=== PATIENT | male | born 1955 | race Caucasian/White ===

== ENCOUNTER 2018-03-17 10:51 | Emergency (ER) | payer OTHER ==
[2018-03-17] MEDS ORDERED: Lactated Ringers 1,000 ML IV ONE (12:00)
--- NOTE | 2018-03-17 12:02 | EDM.PDOC ---
ED HPI GENERAL MEDICAL PROBLEM - General Chief Complaint: Syncope Stated Complaint: FELL OUT OF CHAIR Time Seen by Provider: 03/17/18 11:45 Source of Information: Reports: Patient, EMS, RN History Limitations: Reports: Other (no old records immediately available) - History of Present Illness INITIAL COMMENTS - FREE TEXT/NARRATIVE: 62 yo male here with his after a syncopal episode at a local restaurant. Had slight advanced warning of the syncope in that he got sweaty and mildly light-headed first. He passed out once in the past in association with dehydration/atrial fibrillation. He normally gets [facility] care at [facility] [place]. He denies any CP, diarrhea, vomiting, nausea, or bleeding. No seizure hx. Had almost finished lunch when he had this syncopal spell. Onset: Sudden Onset Date: 03/17/18 Duration: Minutes: (1-2), Resolved Prior to Arrival Location: Reports: Generalized - Related Data Allergies Allergy/AdvReac Type Severity Reaction Status Date / Time No Known Allergies Allergy Verified 03/17/18 11:15 Past Medical History HEENT History: Reports: Hard of Hearing, Other (See Below) Other HEENT History: bilateral hearing aid Cardiovascular History: Reports: Afib, Hypertension, SOB on Exertion Respiratory History: Reports: COPD Genitourinary History: Reports: Other (See Below) Other Genitourinary History: slow stream Musculoskeletal History: Reports: Neck Pain, Chronic Neurological History: Reports: Migraines, Vertigo, Other (See Below) Other Neuro History: syncopal episodes Dermatologic History: Reports: Other (See Below) Other Dermatologic History: 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 - Infectious Disease History Infectious Disease History: Reports: Chicken Pox, Influenza, Measles, Mumps, Shingles - Past Surgical History Cardiovascular Surgical History: Reports: Varicose, Vascular Surgery GI Surgical History: Reports: Appendectomy, Other (See Below) Other GI Surgeries/Procedures: pyloricstenosis, Neurological Surgical History: Reports: C-Spine Other Musculoskeletal Surgeries/Procedures:: c3-4 fusion and c4-7 fusion - cervical fracture lead to fusion c4-7 Dermatological Surgical History: Reports: Skin Biopsy Social & Family History - Family History Cardiac: Reports: Hypertension Endocrine/Metabolic: Reports: Diabetes, type II Oncologic: Reports: Prostate - Tobacco Use Smoking Status *Q: Former Smoker Used Tobacco, but Quit: Yes Month/Year Tobacco Last Used: october 2015 Tobacco Use Comment: quit october 2015 after 45 years Second Hand Smoke Exposure: No - Caffeine Use Caffeine Use: Reports: Coffee, Soda, Tea - Recreational Drug Use Recreational Drug Use: No ED ROS GENERAL - Review of Systems Review Of Systems: See Below Constitutional: Reports: No Symptoms HEENT: Reports: No Symptoms Respiratory: Reports: No Symptoms Cardiovascular: Reports: No Symptoms, Syncope GI/Abdominal: Reports: No Symptoms : Reports: No Symptoms Musculoskeletal: Reports: No Symptoms Skin: Reports: Wound (abrasions L cheek and L elbow) Neurological: Reports: Syncope. Denies: Confusion, Dizziness, Headache, Numbness, Trouble Speaking, Difficulty Walking, Weakness Psychiatric: Reports: No Symptoms - Physical Exam Exam: See Below Exam Limited By: No Limitations General Appearance: Alert, WD/WN, No Apparent Distress Eye Exam: Bilateral Eye: Normal Inspection, PERRL Ears: Normal External Exam, Normal Canal, Hearing Grossly Normal Nose: Normal Inspection, Normal Mucosa, No Blood Throat/Mouth: Normal Inspection, Normal Lips, Normal Oropharynx, Normal Voice, No Airway Compromise Head Exam: Atraumatic, Normocephalic Neck: Normal Inspection, Supple, Non-Tender Respiratory/Chest: No Respiratory Distress, Lungs Clear, Normal Breath Sounds, No Accessory Muscle Use Cardiovascular: Regular Rate, Rhythm, No Edema GI/Abdominal: Normal Bowel Sounds, Soft, Non-Tender Back Exam: Normal Inspection Extremities: Normal Inspection, Normal Range of Motion, Non-Tender, No Pedal Edema Psychiatric: Normal Affect, Normal Mood Skin Exam: Warm, Dry, Normal Color, No Rash, Wound/Incision (abrasions L cheek and L elbow) Course - Vital Signs Last Recorded V/S: Last Vital Signs Temp 36.8 C 03/17/18 11:21 Pulse 65 03/17/18 11:21 Resp 13 03/17/18 11:21 BP 117/61 03/17/18 11:21 Pulse Ox 95 03/17/18 11:21 Orthostatic Blood Pressure [ 119/66 Standing] Orthostatic Blood Pressure [ 115/63 Sitting] Orthostatic Blood Pressure [ 122/63 Supine] - Orders/Labs/Meds Orders: Active Orders 24 hr Category Date Time Status Cardiac Monitoring [RC] .As Directed Care 03/17/18 11:52 Active Orthostatic Vital Signs [RC] ASDIRECTED Care 03/17/18 11:52 Active Vaccines to be Administered [RC] PER UNIT ROUTINE Care 03/17/18 13:31 Ordered UA W/MICROSCOPIC [URIN] Stat Lab 03/17/18 12:47 Ordered Bacitracin [Bacitracin Oint 1 GM] Med 03/17/18 13:31 Once 2 dose TOP ONETIME ONE Diphth,Pertuss(Acell),Tet Vac [Adacel] Med 03/17/18 13:31 Once 0.5 ml IM .ONCE ONE Labs: Laboratory Tests 03/17/18 03/17/18 03/17/18 Range/Units 11:52 11:52 12:47 WBC 5.9 (4.5-11.0) K/uL RBC 4.21 L (4.30-5.90) M/uL Hgb 12.8 (12.0-15.0) g/dL Hct 41.3 (40.0-54.0) % MCV 98 (80-98) fL MCH 30 (27-31) pg MCHC 31 L (32-36) % Plt Count 155 (150-400) K/uL Sodium 139 L (140-148) mmol/L Potassium 4.0 (3.6-5.2) mmol/L Chloride 104 (100-108) mmol/L Carbon Dioxide 27 (21-32) mmol/L Anion Gap 12.0 (5.0-14.0) mmol/L BUN 22 H (7-18) mg/dL Creatinine 1.5 H (0.8-1.3) mg/dL Est Cr Clr Drug Dosing 57.84 mL/min Estimated GFR (MDRD) 47 L (>60) Glucose 132 H (74-106) mg/dL Calcium 9.3 (8.5-10.1) mg/dL Troponin I < 0.017 (0.000-0.056) ng/mL Urine Color Yellow Urine Appearance Clear Urine pH 6.0 (4.5-8.0) Ur Specific [place] 1.015 (1.008-1.030) Urine Protein Negative (NEGATIVE) mg/dL Urine Glucose (UA) Normal (NEGATIVE) mg/dL Urine Ketones Negative (NEGATIVE) mg/dL Urine Occult Blood Negative (NEGATIVE) Urine Nitrite Negative (NEGAITVE) Urine Bilirubin Negative (NEGATIVE) Urine Urobilinogen Normal (NORMAL) mg/dL Ur Leukocyte Esterase Negative (NEGATIVE) Urine RBC Not seen (0-5) Urine WBC Not seen (0-5) Ur Epithelial Cells Not seen Amorphous Sediment Rare Urine Bacteria Not seen Urine Mucus Not seen Meds: Medications Discontinued Medications Generic Name Dose Route Start Last Admin Trade Name Venu PRN Reason Stop Dose Admin Lactated Ringer's 1,000 mls @ 1,000 mls/hr 03/17/18 12:00 03/17/18 12:15 Ringers, Lactated IV 03/17/18 12:59 1,000 mls/hr BOLUS ONE Administration Departure - Departure Time of Disposition: 13:40 Disposition: Home, Self-Care 01 Condition: Fair Clinical Impression: Abrasions of multiple sites Syncope Qualifiers: Syncope type: unspecified Qualified Code(s): R55 - Syncope and collapse - Discharge Information *PRESCRIPTION DRUG MONITORING PROGRAM REVIEWED*: Not Applicable *COPY OF PRESCRIPTION DRUG MONITORING REPORT IN PATIENT ROSALIND: Not Applicable Instructions: Syncope Referrals: PCP,None [Primary Care Provider] - Forms: ED Department Discharge Additional Instructions: Continue your current medications. See your doctor regarding a Holter Monitor, do this NICO. If you start feeling light-headed, then lie down right away. No driving until cleared medically. Clean your wounds twice daily with soap and water, dry, and apply Bacitracin ointment and a new dressing. Recheck for signs of infection. - My Orders Last 24 Hours: My Active Orders 03/17/18 11:52 Cardiac Monitoring [RC] .As Directed Orthostatic Vital Signs [RC] ASDIRECTED 03/17/18 12:47 UA W/MICROSCOPIC [URIN] Stat 03/17/18 13:31 Vaccines to be Administered [RC] PER UNIT ROUTINE Bacitracin [Bacitracin Oint 1 GM] 2 dose TOP ONETIME ONE Diphth,Pertuss(Acell),Tet Vac [Adacel] 0.5 ml IM .ONCE ONE - Assessment/Plan Last 24 Hours: My Active Orders 03/17/18 11:52 Cardiac Monitoring [RC] .As Directed Orthostatic Vital Signs [RC] ASDIRECTED 03/17/18 12:47 UA W/MICROSCOPIC [URIN] Stat 03/17/18 13:31 Vaccines to be Administered [RC] PER UNIT ROUTINE Bacitracin [Bacitracin Oint 1 GM] 2 dose TOP ONETIME ONE Diphth,Pertuss(Acell),Tet Vac [Adacel] 0.5 ml IM .ONCE ONE
[2018-03-17] MEDS ORDERED: Bacitracin Oint 1 GM U/D Packet TOP ONE (13:31)
[2018-03-17] MEDS ORDERED: Diphtheria,Pertussis(Acell),Tetanus Vaccine 0.5 ML SDV IM ONE (13:31)
== END 2018-03-17 13:52 | disposition home or self-care (01) ==
LOC: JP.ED 10:51
DX: R55 Syncope and collapse (principal); S00.81XA Abrasion of other part of head, initial encounter; S50.312A Abrasion of left elbow, initial encounter; I10 Essential (primary) hypertension; W18.30XA Fall on same level, unspecified, initial encounter; Y92.511 Restaurant or cafe as the place of occurrence of the external cause; Z87.891 Personal history of nicotine dependence
CPT/HCPCS: 36415; 80048; 81001; 84484; 85027; 90471; 90715; 96360; 99284; J7120